=== PATIENT | male | born 1995 | race Caucasian/White ===

== ENCOUNTER 2017-09-10 08:14 | Emergency (ER) | payer BC, OTHER ==
[~2017-09-10] VITALS: Ht 182.9 cm; Wt 70.7 kg
[2017-09-10 08:17] VITALS: BP 107/69
[2017-09-10 09:01] LABS: RAPID INFLUENZA A Negative (Negative); RAPID INFLUENZA B Negative (Negative)
== END 2017-09-10 09:37 | disposition home or self-care (01) ==
LOC: ED 08:50
DX: J00 Acute nasopharyngitis [common cold] (principal)
CPT/HCPCS: 71046; 87400; 99285